=== PATIENT | male | born 1990 | race Caucasian/White ===

== ENCOUNTER 2018-05-22 10:32 | Inpatient (IN) ==
[2018-05-22] MEDS ORDERED: ONDANSETRON 4 MG/2 ML VIAL IV PRN (13:51)
[2018-05-22] MEDS ORDERED: NICOTINE 21 MG/24 HR PATCH TRANSDERM PRN (13:51)
[2018-05-22] MEDS ORDERED: traZODone 50 MG TABLET PO PRN (13:51)
[2018-05-22] MEDS ORDERED: diphenhydrAMINE CAP 25 MG CAPSULE PO PRN (13:51)
[2018-05-22] MEDS: SODIUM CHLORIDE 0.9% 1,000 ML IV SCH (16:15)
[2018-05-22 17:49] LABS: Barbiturates Screen,Urine Negative (Negative); Benzodiazepines Screen,Urine Negative (Negative); Cannabinoid Screen,Urine Negative (Negative); Opiate Screen,Urine Negative (Negative); Phencyclidine Screen,Urine Negative (Negative)
[2018-05-22] MEDS: ACETAMINOPHEN 325 MG TABLET PO PRN (19:59)
[2018-05-22] MEDS: DOCUSATE SODIUM 100 MG CAPSULE PO SCH (20:29)
[2018-05-22] MEDS: APIXABAN 5 MG TABLET PO SCH (20:29)
[2018-05-23] MEDS: ACETAMINOPHEN 325 MG TABLET PO PRN (00:05)
[2018-05-23] MEDS: SODIUM CHLORIDE 0.9% 1,000 ML IV SCH ×4 (03:55→21:25)
[2018-05-23 06:16] LABS: Basophils % 0.3 % (0.0-0.8); Eosinophils % 0.4 % (0.00-10.9); Hemoglobin 12.4 GM/DL (14.0-18.0); Immature Granulocytes % 0.3 %; Immature Granulocytes Absolute 0.02 #; Lymphocytes # 3.4 10*3/uL (1.4-4.0); Lymphocytes % 43.3 % (21.2-54.2); Mean Corpuscular HGB Conc 35.4 GM/DL (32-36); Mean Corpuscular Hemoglobin 31 PG (27-34); Mean Corpuscular Volume 87.3 FL (87-102); Mean Platelet Volume 10.7 FL (9.6-12.0); Monocytes # 0.7 10*3/uL (0.11-0.8); Neutrophils # 3.7 10*3/uL (1.4-7.4); Neutrophils % 46.7 % (38.7-73.9); Platelet Count 159 T/CUMM (130-400); Red Blood Count 4.01 MC/CUMM (3.8-5.5); Red Cell Distribution Width 13.2 % (9.3-17.3); White Blood Count 7.9 T/CUMM (4-12)
[2018-05-23 06:57] LABS: Bilirubin,Total 2.2 MG/DL (0.2-1.0); Calcium 7.5 MG/DL (8.5-10.1); Osmolality,Calculated 272.7 MOS/KG (273-304); Potassium 3.6 MMOL/L (3.5-5.1); Risk Ratio 4.33; Thyroid Stimulating Hormone 0.389 uIU/ml (0.358-3.74); Total Protein 5.9 G/DL (6.4-8.3); VLDL CHOLESTEROL 13.8 MG/DL
[2018-05-23] MEDS ORDERED: PIPERACILLIN/TAZOBACTAM 3,375 MG in SODIUM CHLORIDE 0.9% 100 ML IV SCH (08:00)
[2018-05-23] MEDS: LEVOFLOXACIN INJ 750 MG in PREMIX 1 EACH IV SCH (09:00)
[2018-05-23 09:21] LABS: Apearance,Urine CLEAR (Clear); Bilirubin,Urine Negative (Negative); Blood, Urine Negative (Negative); Glucose,Urine (UA) Negative (Negative); Ketones,Urine Negative (Negative); Mucus,Urine Occasional /LPF (Occasional); Nitrite,Urine Negative (Negative); Protein,Urine Negative; RBC,Urine <1 /HPF (0-4); Urine Color Yellow (Yellow); Urine Specific Gravity 1.008 (1.001-1.035); WBC,Urine <1 /HPF (0-6)
[2018-05-23] MEDS: PANTOPRAZOLE 40 MG TABLET PO SCH (10:11)
[2018-05-23] MEDS: APIXABAN 5 MG TABLET PO SCH ×2 (10:12→21:09)
[2018-05-23] MEDS: DOCUSATE SODIUM 100 MG CAPSULE PO SCH ×2 (10:12→21:10)
[2018-05-23] MEDS ORDERED: VANCOMYCIN INJ 2,500 MG in SODIUM CHLORIDE 0.9% 500 ML IV ONE (11:00)
[2018-05-23 13:11] LABS: Hepatitis A Ab IgM Quant 0.26 Index; Hepatitis A Ab IgM Result Negative (Negative); Hepatitis B Core IgM Quant < 0.05 Index; Hepatitis B Core IgM Result Negative (Negative); Hepatitis B Surface Ag Quant < 0.10 Index; Hepatitis B Surface Ag Result Negative (Negative); Hepatitis C Virus Ab Quant 0.02 Index; Hepatitis C Virus Ab Result Negative (Negative)
[2018-05-23] MEDS ORDERED: methylPREDNISolone SOD SUC 125 MG/2 ML VIAL IV ONE (15:00)
[2018-05-23] MEDS ORDERED: VANCOMYCIN INJ 1,500 MG in SODIUM CHLORIDE 0.9% 500 ML IV SCH (23:00)
[2018-05-24] MEDS: SODIUM CHLORIDE 0.9% 1,000 ML IV SCH ×2 (04:04→10:59)
[2018-05-24 08:02] VITALS: BP 116/58
[2018-05-24] MEDS: LEVOFLOXACIN INJ 750 MG in PREMIX 1 EACH IV SCH (09:36)
[2018-05-24] MEDS: APIXABAN 5 MG TABLET PO SCH (09:37)
[2018-05-24] MEDS: DOCUSATE SODIUM 100 MG CAPSULE PO SCH (09:37)
[2018-05-24] MEDS: PANTOPRAZOLE 40 MG TABLET PO SCH (09:37)
[2018-05-24 12:53] LABS: HIV Antigen/Antibody Result Nonreactive (Nonreactive)
[2018-05-24 15:05] LABS: DRVVT Screen Ratio 1.1 ratio (0.0 - 1.1); INR 1.2; Protein C Activity Plasma 52 % (70 - 150); Protein S Activity Plasma 104 % (65 - 160)
[2018-05-25 16:36] LABS: F5DNA Reviewed By SEE COMMENTS; Factor V Leiden (R506Q) Mutati Negative (Negative); PTNT Reviewed By SEE COMMENTS
== END 2018-05-24 11:55 | disposition home or self-care (01) | DRG 176 ==
LOC: N.ED 10:32 → N.EDINP 13:48 → N.2E 16:56
PROVIDERS: ADMIT Internal Medicine; ATTEND Internal Medicine